=== PATIENT | male | born 1965 | race Caucasian/White ===

== ENCOUNTER 2017-07-30 17:44 | Emergency (ER) | payer OTHER ==
[~2017-07-30] VITALS: Ht 180.3 cm; Wt 88.9 kg
[~2017-07-30 17:44] MED LIST: ACIPHEX 20 MG T20 MG PO; AMBIEN 5 MG TABL5 M1 PO; ASA5UEC PO; ASPIRIN81 M2; BAYER CHEWABLE81 MG PO; CARVEDILOL12.5 MG PO; COLACE 100 MG100 MG PO; CRESTOR10 MG PO; CRESTOR40 MG PO; FLEXERIL PO; HYDROCODON-ACE1 EACH PO; HYDROCODONE-AP1 EAC6 PO; IBUPROFEN 800800 M1 PO; LEVOTHYROXIN0.112 M1 PO; LEXAPRO 10 MG T10 M2 PO; LISINOPRIL5 MG PO; LOPRESSOR25 PO; MEDROLDOSEPACK PO; NEURONTIN 300300 M1; NEURONTIN 300300 M1 PO; NIASPAN 500 MG500 M1 PO; NITROGLYCERIN0.4 MG SL; NITROSTAT0.4 M1 SL; NORCO 5-325 TA1 EACH PO; OMEPRAZOLE 20 M20 M1 PO; OMEPRAZOLE 20 M20 MG PO; PERCOCET 7.5-31 EACH PO; PERCOCET PO; PHENERGAN 25 MG25 M1 PO; PHENERGAN25 M1 RC; PRINIVIL10 MG PO; PROTONIX40 M1 PO; RANEXA1000 MG PO; RANEXA500 MG PO; TOPROL XL50 MG PO; TRAMADOL 50 MG50 MG PO; VICODIN 5-3001 EACH PO; XANAX 0.25 MG0.25 MG PO; ZOFRAN 4 MG ORAL4 M1 DIS; ZOFRAN 4 MG ORAL4 MG PO; ZOFRAN ODT4 MG PO; ZOLOFT50 MG PO
[2017-07-30] MEDS ORDERED: KEFLEX500 M1 PO (18:47)
[2017-07-30] MEDS ORDERED: BACTRIM DS TAB1 EACH PO (18:47)
[2017-07-30 18:58] VITALS: BP 144/96
== END 2017-07-30 19:00 | disposition home or self-care (01) ==
LOC: M.ERS 17:44
DX: L03.114 Cellulitis of left upper limb (principal); Z87.891 Personal history of nicotine dependence; I10 Essential (primary) hypertension; E03.9 Hypothyroidism, unspecified; F41.9 Anxiety disorder, unspecified; E05.00 Thyrotoxicosis with diffuse goiter without thyrotoxic crisis or storm

== ENCOUNTER 2018-07-09 14:08 | Emergency (ER) | payer OTHER ==
[~2018-07-09] VITALS: Ht 180.3 cm; Wt 88.9 kg
[~2018-07-09 14:08] MED LIST changes: +BACTRIM DS TAB1 EACH PO; +KEFLEX500 M1 PO
[2018-07-09] MEDS ORDERED: TELMISARTAN20 MG PO (14:22)
[2018-07-09] MEDS ORDERED: AMOXICILLIN 50500 MG PO (14:22)
[2018-07-09] MEDS ORDERED: AMBIEN 5 MG TABL5 M1 PO (14:22)
[2018-07-09] MEDS ORDERED: TRIAMCINOLONE A80 G2 TOP (14:29)
[2018-07-09] MEDS ORDERED: MEDROLDOSEPACK PO (14:29)
[2018-07-09 14:55] VITALS: BP 149/88
== END 2018-07-09 15:07 | disposition home or self-care (01) ==
LOC: M.ERS 14:08
DX: L25.5 Unspecified contact dermatitis due to plants, except food (principal); F41.9 Anxiety disorder, unspecified; I10 Essential (primary) hypertension; E03.9 Hypothyroidism, unspecified; Z95.1 Presence of aortocoronary bypass graft; Z87.891 Personal history of nicotine dependence